=== PATIENT | female | born 1975 | race American Indian/Alaskan Native ===

== ENCOUNTER 2019-12-29 05:10 | Emergency (ER) | payer BC ==
--- NOTE | 2019-12-29 06:05 | XRay Report ---
CHEST 2 VIEWS INDICATION: fever and cough. COMPARISON: None FINDINGS: Support devices: None. Heart: Within normal limits. Lungs/pleura: No acute air space or interstitial disease. No pneumothorax. Additional findings: None. IMPRESSION: 1. No acute findings. Signer Name: Ben Zuñiga MD Signed: 12/29/2019 6:00 AM Workstation Name: [id number]
[2019-12-29] MEDS ORDERED: IBUPROFEN 800 MG TAB PO ONE (06:22)
[2019-12-29] MEDS ORDERED: IBUPROFEN 800 MG TAB ONE (06:22)
--- NOTE | 2019-12-29 07:34 | Emergency Department Report ---
Chief Complaint: Upper Respiratory Infection Stated Complaint: FLU SYMPTOMS Time Seen by Provider: 12/29/19 07:09 - HPI History of Present Illness: Patient is a 44-year-old female presents to emergency room with complaint of URI symptoms that began 3 days ago. She has associated generalized body aches, cough, congestion, headache, subjective fever, rhinorrhea, nausea. she denies any ear pain, sore throat, vomiting, diarrhea, shortness of breath, chest pain. She has had a sick contact with URI symptoms. She denies any past medical history. She states has an allergy to penicillin. She is currently on her menstrual cycle. initial vitals with mild tachycardia on exam: non toxic appearing, no acute distress normal appearance of the eyes moist mucus membranes normal oropharynx, no tonsillar hypertrophy, no exudates, uvula is midline normal TMs and canals bilaterally nasal turbinates edematous and pale, no erythema, no purulent drainage, no sinus TTP bilaterally mild tachycardia, normal heart rhythm, no gallops, no murmurs, no rubs breath sounds are clear bilaterally, no w/r/r skin is warm, dry intact CXR ordered prior to my evaluation with no acute process pt given tylenol and tramadol while in the ED secondary to fever of 100.4 and body aches, she did not drive to the emergency department, pt refused to have her vitals retaken prior to discharge no signs of dehydration, she is not hypotensive, mucus membranes are moist, she is not having fluid losses such as vomiting or diarrhea low risk based on wells criteria for a PE Symptoms and examination consistent with viral URI Patient has had sick contact with similar symptoms Discussed symptomatic treatment and supportive care with the patient Patient is presenting with a nonmedical emergency at this time Medical screening examination performed and there is no threat to life or limb a t this time Patient will be referred to a primary care physician Discussed with patient strict return precautions - Exam Vital Signs: Vital Signs 12/29/19 05:15 Temperature 99.3 F Pulse Rate 103 H Respiratory 18 Rate Blood Pressure 158/85 O2 Sat by Pulse 99 Oximetry MSE screening note: Focused history and physical exam performed. ED Disposition for MSE Clinical Impression: Upper respiratory infection Qualifiers: URI type: unspecified viral URI Qualified Code(s): J06.9 - Acute upper respiratory infection, unspecified Disposition: MED SCREENING EXAM-LEFT Is pt being admited?: No Does the pt Need Aspirin: No Condition: Stable Instructions: Upper Respiratory Infection (ED), Viral Syndrome (ED) Additional Instructions: Please increase your fluid intake over the next several days. May take Mucinex during the day and TheraFlu at night. May take Tylenol or ibuprofen as needed for body aches. use flonase nasal spray. Follow-up with a primary care doctor in the next 2-3 days for reexamination. your blood pressure was mildly elevated during today's visit please see a primary care doctor to have this rechecked and evaluated. Return to the emergency room for any new or worsening symptoms. [facility] MD JENNIFER [Primary Care Provider] - 2-3 Days YING LEIJA MD [Staff Physician] - 2-3 Days [facility] [Outside] - 2-3 Days [facility] [Outside] - 2-3 Days Forms: Work/School Release Form(ED) Time of Disposition: 07:32 Print Language: ICELANDIC
[2019-12-29] MEDS ORDERED: traMADol 50 MG TAB PO ONE (08:06)
[2019-12-29] MEDS ORDERED: ACETAMINOPHEN 325 MG TAB PO ONE (08:06)
[2019-12-29 08:19] VITALS: BP 131/82
== END 2019-12-29 08:32 | disposition left against medical advice (07) ==
LOC: ED 05:10
DX: J06.9 Acute upper respiratory infection, unspecified (principal)
CPT/HCPCS: 71046